=== PATIENT | female | born 1950 | race Caucasian/White ===

== ENCOUNTER → 2017-01-18 | Outpatient (CLI) | payer MEDICARE, MEDICAID ==
[~2017-01-18] MED LIST: Iopamidol 755 MG/ML 500 ML Multipack Bottle IVPUSH STA
--- NOTE | 2017-01-18 17:02 | CT ---
EXAMINATION: CT chest with contrast HISTORY: Breast lump COMPARISON: Mammograms dated 11/09/2016. TECHNIQUE: Axial CT images obtained through the chest following the administration of 70 mL of Isovu e-370 in the right wrist. Coronal and sagittal reconstructions obtained. Breathing artifact is noted . FINDINGS: There is nodular scarring within the left lingula, otherwise the lungs are clear. No pleur al effusion or pneumothorax. The heart is normal in size without a pericardial effusion. The thoraci c aorta is normal caliber. Main pulmonary arteries are patent. There is a tiny hiatal hernia. No med iastinal or hilar lymphadenopathy. The central airways are clear. There is a 9 mm asymmetry within t he right breast approximate 10 to 11:00 position which likely corresponds to the 2 view asymmetry no yamil within the mammogram. Cholelithiasis without evidence of cholecystitis. Remaining images of the upper abdomen appear gross ly unremarkable. There is a small sclerotic focus within the manubrium not well characterized second malik to motion. IMPRESSION: 1. There is a 9 mm asymmetry within the upper outer right breast which likely correlates to the 2 vi ew asymmetry noted on the previous mammogram. This is best noted on images 44 and 45 of series 201. 2. Cholelithiasis without evidence of cholecystitis.
== END ==
LOC: MW.DI 12:51
PROVIDERS: ATTEND Family Medicine
DX: N63 Unspecified lump in breast (principal); R93.8 Abnormal findings on diagnostic imaging of other specified body structures; K80.20 Calculus of gallbladder without cholecystitis without obstruction; N64.89 Other specified disorders of breast
CPT/HCPCS: 71260; Q9967

== ENCOUNTER → 2017-02-19 | Outpatient (CLI) | payer MEDICARE, MEDICAID | LOC: MW.CHGS 08:00 | PROVIDERS: ATTEND Surgery | DX: N63 Unspecified lump in breast (principal) | CPT/HCPCS: G0463 ==

== ENCOUNTER 2017-03-03 06:31 | Day surgery (SDC) | payer MEDICARE, MEDICAID ==
[~2017-03-03 06:31] MED LIST changes: -Iopamidol 755 MG/ML 500 ML Multipack Bottle IVPUSH STA; +Lactated Ringers 1,000 ML IV SCH; +Sodium Chloride 0.9% 10 ML Syringe FLUSH PRN; +Sodium Chloride 0.9% 2.5 ML Syringe FLUSH PRN; +ceFAZolin 2 GM in Premix Bag 1 BAG IV ONE
--- NOTE | 2017-03-03 07:01 | PCM.PREANE ---
Preanesthetic Assessment - Anesthesia/Transfusion/Family Hx Anesthesia History: Prior Anesthesia Without Reaction Transfusion History: No Prior Transfusion(s) - Review of Systems General: No Symptoms Pulmonary: No Symptoms Cardiovascular: No Symptoms Gastrointestinal: No symptoms Neurological: No Symptoms Other: Reports: None - Physical Assessment NPO Status Date: 03/02/17 Height: 1.68 m Weight: 61.689 kg ASA Class: 2 Mental Status: Alert & Oriented x3 Airway Class: Mallampati = 3 Dentition: Reports: Edentulous (edent up) Lungs: Clear to auscultation, Normal respiratory effort Cardiovascular: Regular Rate, Regular Rhythm - Allergies Allergies/Adverse Reactions: Allergies Allergy/AdvReac Type Severity Reaction Status Date / Time No Known Allergies Allergy Verified 07/31/16 20:03 - Blood Blood Available: No - Acknowledgements Anesthesia Type Planned: General Anesthesia Pt an Appropriate Candidate for the Planned Anesthesia: Yes Alternatives and Risks of Anesthesia Discussed w Pt/Guardian: Yes Pt/Guardian Understands and Agrees with Anesthesia Plan: Yes Additional Comments: caregivers report pt needs sedation for iv start as well as for needle loc and injection of contrast for SLNBX. 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 Musculoskeletal History: Reports: Arthritis, Osteoarthritis, Osteoporosis Other Musculoskeletal History: uses wheelchair Neurological History: Reports: Other (See Below) Other Neuro History: , non verbal, profound intellectual disability Psychiatric History: Reports: Developmental Delay Endocrine/Metabolic History: Reports: None Hematologic History: Reports: None Oncologic (Cancer) History: Reports: None - Infectious Disease History Infectious Disease History: Reports: None - Past Surgical History Head Surgeries/Procedures: Reports: None GI Surgical History: Reports: None Female Surgical History: Reports: None Musculoskeletal Surgical History: Reports: ORIF, Shoulder Surgery, Other (See Below) Other Musculoskeletal Surgeries/Procedures:: Left ankle distal fibula -steel plate - SUBSTANCE USE Smoking Status *Q: Never Smoker Second Hand Smoke Exposure: No Days Per Week of Alcohol Use: 0 Recreational Drug Use History: No - HOME MEDS Home Medications: Home Meds Calcium Carbonate/Vitamin D3 [Oyster Shell Calcium] 1 tab PO BID 04/07/14 [ History] Imipramine HCl [Imipramine] 50 mg PO ACBREAKFAST 04/07/14 [History] Multivitamin [Daily Vitamin] 1 each PO DAILY 04/07/14 [History] Omeprazole 20 mg PO DAILY 04/07/14 [History] risperiDONE [Risperdal] 1 mg PO BEDTIME 04/07/14 [History] Docusate Sodium 200 mg PO BEDTIME 03/02/17 [History] Ferrous Sulfate 325 mg PO DAILY 03/02/17 [History] Imipramine HCl 75 mg PO BEDTIME 03/02/17 [History] Polyethylene Glycol 3350 1 dose PO ASDIRECTED 03/02/17 [History] Starch [Thick-It] 1 dose PO ASDIRECTED PRN 03/02/17 [History] risperiDONE 1.5 tab PO ACBREAKFAST 03/02/17 [History] - CURRENT (IN HOUSE) MEDS Current Meds: Current Medications Lactated Ringer's (Ringers, Lactated) 1,000 mls @ 125 mls/hr IV ASDIRECTED ANA ROSA Last Admin: 03/03/17 06:29 Dose: 125 mls/hr Sodium Chloride (Saline Flush) 10 ml FLUSH ASDIRECTED PRN PRN Reason: Keep Vein Open Sodium Chloride (Saline Flush) 2.5 ml FLUSH ASDIRECTED PRN PRN Reason: Keep Vein Open Discontinued Medications Cefazolin Sodium/Dextrose 2 gm (/ Premix) 50 mls @ 100 mls/hr IV ONETIME ONE Stop: 03/02/17 14:34
[2017-03-03] MEDS ORDERED: Propofol 200 MG/20 ML SDV ONE ×2 (07:06→07:07)
[2017-03-03] MEDS ORDERED: Midazolam 1 MG/ML 2 ML SDV ONE (07:06)
[2017-03-03] MEDS ORDERED: Lidocaine 2% 5 ML SDV ONE (07:06)
[2017-03-03] MEDS ORDERED: fentaNYL 250 MCG/5 ML SDV ONE (07:06)
[2017-03-03] MEDS ORDERED: Bupivacaine 0.5% 10 ML SDV ONE (07:09)
[2017-03-03] MEDS ORDERED: Lidocaine 1% 50 ML MDV ONE (07:09)
[2017-03-03] MEDS ORDERED: Midazolam Oral Soln 10 MG/5 ML UD Cup PO ONE (07:56)
[2017-03-03] MEDS ORDERED: Isosulfan Blue 5 ML SDV SUBCUT ONE (09:09)
[2017-03-03] MEDS ORDERED: Octyl 2-Cyanoacrylate 1 Tube ONE (10:18)
[2017-03-03] MEDS ORDERED: ePHEDrine 50 MG/ML SDV ONE ×2 (10:27→12:40)
[2017-03-03] MEDS ORDERED: fentaNYL 100 MCG/2 ML SDV ONE (11:11)
--- NOTE | 2017-03-03 13:04 | PCM.OPNOTE ---
- General Post-Op/Procedure Note Date of Surgery/Procedure: 03/03/17 Operative Procedure(s): Lumpectomy and Curran lymph node biopsy Findings: 1 lymph node in right axilla 1066 radioactivity and blue, mass and wire sent. cranial and caudal margin re-excision Pre Op Diagnosis: right breast mass Post-Op Diagnosis: same Anesthesia Technique: General ET tube Primary Surgeon: Deysi Urbano Pathology: Right axillary sentinel lymph node, right breast mass, right cranial margin, right caudal margin Condition: Good
--- NOTE | 2017-03-03 13:11 | NM ---
EXAMINATION: Lymphoscintigraphy HISTORY: Lump COMPARISON: CT dated 01/18/2017 TECHNIQUE: The area was sterilely prepped. A total of 8 intradermal injections were placed in a yusef areolar distribution of the right breast. A total of 0.5 mCi of technetium 99 M labeled sulfur collo id was injected. Planar images were obtained demonstrating the injection site and 2 small foci of ac tivity developing in the axillary region. IMPRESSION: Successful right breast lymphoscintigraphy.
[2017-03-03] MEDS ORDERED: fentaNYL 100 MCG/2 ML SDV IVPUSH PRN (13:23)
--- NOTE | 2017-03-03 14:08 | CT ---
EXAMINATION: CT guided right breast wire localization HISTORY: Breast mass COMPARISON: CT dated 01/18/2017 and mammogram dated 11/09/2016 TECHNIQUE: Consent was obtained prior to the patient arriving to the radiology floor. The patient wa s intubated and placed on the CT table. Planer Off Bearer images were obtained. An adequate location was identif ied. The area was sterilely prepped. 1% lidocaine was administered. Using CT guidance a wire localiz ation needle was advanced to the region of concern. The needle was withdrawn, and the wire location was confirmed. IMPRESSION: Successful CT-guided right breast wire localization.
--- NOTE | 2017-03-03 14:44 | PCM.POSTAN ---
POST ANESTHESIA ASSESSMENT - MENTAL STATUS Mental Status: alert, oriented, other Free Text/Narrative:: Awake. Normal behavior. No evidence of discomfort. Still waking up. To day surgery on Supplemental Oxygen per nasal prongs to be weaned off prior to discharge back to [facility]. - VITAL SIGNS Pulse Rate: 83 SaO2: 95 Resp Rate: 12 Blood Pressure: 130/73 - RESPIRATORY Respiratory Status: respiratory rate WNL, airway patent, O2 saturation stable, supplemental oxygen - CARDIOVASCULAR CV Status: pulse rate WNL, blood pressure stable - GASTROINTESTINAL GI Status: no symptoms - PAIN Pain Score: 0 (non verbal pain score) - POST OP HYDRATION Hydration Status: adequate & stable
--- NOTE | 2017-03-03 16:04 | PCM48HPAN ---
Post Anesthesia Note - EVALUATION WITHIN 48HRS OF ANESTHETIC Vital Signs in Normal Range: Yes Patient Participated in Evaluation: Yes Respiratory Function Stable: Yes Airway Patent: Yes Cardiovascular Function Stable: Yes Hydration Status Stable: Yes Pain Control Satisfactory: Yes Nausea and Vomiting Control Satisfactory: Yes Mental Status Recovered: Yes
--- NOTE | 2017-03-03 16:17 | MY ---
EXAMINATION: Specimen mammogram HISTORY: Lump COMPARISON: Mammograms dated 11/09/2016 TECHNIQUE: Single view FINDINGS/IMPRESSION: The provided specimen mammogram demonstrates the hook and probable mass of conc lety.
[2017-03-03 16:25] VITALS: BP 130/68
--- NOTE | 2017-03-04 00:47 | OR ---
SURGEON: CARLOS BA MD DATE OF PROCEDURE: 03/03/2017 PREOPERATIVE DIAGNOSIS: Right breast mass. POSTOPERATIVE DIAGNOSIS: Right breast mass. PROCEDURE PERFORMED: Right breast sentinel lymph node biopsy and wire localized lumpectomy. ANESTHESIA: General endotracheal anesthesia. FLUIDS: See Anesthesia record. URINE OUTPUT: 500 mL. ESTIMATED BLOOD LOSS: 10 mL. FINDINGS: One sentinel lymph node within the right axilla that appeared blue and showed radioactivity. Wire-localized mass deep along the chest wall in the right upper outer quadrant. COMPLICATIONS: None. INDICATIONS: The patient is a 66-year-old female, who resides at the [facility]. She recently underwent a first time screening mammography that showed a spiculated mass in the right upper outer quadrant. This was not visualized on ultrasound, so the patient underwent a CT of the chest. The CT of the chest showed the mass in the right upper outer quadrant. Given the patient's mental handicaps, she was unable to cooperate with preoperative needle localization or any needle biopsies of the area. After a long discussion with her primary care physician and the Anesthesia team, the decision was made to intubate the patient in the operating room and take her down to Radiology to perform a CT-guided needle wire localization of the mass. Given the concern that this is highly suspicious for cancer, the decision was made to perform a sentinel lymph node biopsy at the same time in case the mass comes back as an invasive cancer or carcinoma in situ. I had lengthy conversations with the patient's power of state's attorney regarding the procedure, the expected perioperative course, wound cares afterwards, as well as the risks including bleeding, infection, or damage to surrounding structures. The patient's power of state's attorney verbalized understanding and wishes to proceed. PROCEDURE IN DETAIL: The patient was brought into the operating room and intubated prior to my procedure. The patient was then taken down to Radiology for a CT-guided wire localization of the right breast mass and lymphoscintigraphy. Images were obtained in Nuclear Medicine afterwards to localize the radioactive sentinel lymph node, which appeared to be in the right upper outer quadrant along the axilla. The patient was then brought into the operating room from Radiology and placed on the OR table in supine position. The right arm was placed at a 90- degree angle with the hand angled up. Prior to prepping and draping, I used the Zite counter to locate the area of greatest radioactivity within the right axilla. This spot was marked with a marking pen. The patient's right chest, arm, and axilla were prepped and draped in the usual standard fashion. I started first with the sentinel lymph node biopsy. We were approximately 1 hour after placement of the Tc 99 sulfur colloid in Radiology. 3 to 4 mL of isosulfan blue dye was injected along the right periareolar margin laterally. This was massaged gently for 5 minutes. A handheld gamma probe was used to identify the location of the hottest spot in the axilla. Prior to the incision, the counts were 400 to 500. An incision was made and a hot blue node was identified. The probe was placed in contact with the node and a count of 1066 was recorded. The node was excised in its entirety. Ex vivo, the node measured 1066 counts again when it was placed on the probe. The bed of the node measured 18 counts after this was removed. I sent the sentinel lymph node to pathology labeled as right axillary sentinel lymph node. This was sent for frozen, which confirmed a solitary lymph node with no evidence of metastases. I inspected my incision and the surrounding tissue for any further radioactivity and none was noted. The wound was irrigated copiously with normal saline and closed with interrupted 3-0 Vicryls in the subcutaneous fat to close the space and a running 4-0 Monocryl suture over the incision to close the skin. I then turned my attention to the mass on the right breast. A 6-cm incision was made horizontally along the 9 o'clock position encompassing the wire. The wire was located in the middle of the incision. I then dissected down using cautery to a level 2 to 3 cm from the skin. I then made a wide 2 x 2 box incision around the wire to try and encompass the mass. I was unable to palpate any mass as I was doing this and at one point, I came across thickened tissue that appeared to be consistent with the mass. I widened my margins to make sure that they were clear. Once the mass was out, it was oriented using silk sutures and sent to pathology for frozen. My cranial and caudal margins were close, so I took another 1 cm of tissue in the cranial and caudal areas. These were oriented and sent to pathology labeled as cranial and caudal margins. I then placed surgical drew around the site of my biopsy bed for possible radiation later or re- excision. The wound was irrigated copiously with normal saline and hemostasis was achieved with cautery. Once I had confirmation of good margins, I closed the wound with interrupted 3-0 Vicryls within the subcutaneous fat to try and close up the space adequately. I then closed the skin overlying the incision with interrupted 3-0 Vicryls within the subcutaneous fat and a running 4-0 Monocryl suture within the skin. Before completing the procedure, I injected Marcaine widely around both my axillary lymph node surgical site and my lumpectomy site to provide good postoperative anesthetic. I then applied Dermabond to the wounds and sterile dressings were then applied afterwards. The patient was straight cathed at the end of the procedure and 500 mL of clear urine was noted. All counts were complete and correct at the end of the case. The patient was taken to the postoperative care unit in stable condition. LEDA MURILLO /[id number]
== END 2017-03-03 16:20 | disposition home or self-care (01) ==
LOC: MW.SDS 06:31
PROVIDERS: ATTEND Surgery
PROC: 0HBT0ZZ Excision of Right Breast, Open Approach (ICD-10-PCS; principal; 2017-03-03)
PROC: 07B50ZX Excision of Right Axillary Lymphatic, Open Approach, Diagnostic (ICD-10-PCS; 2017-03-03)
DX: D05.11 Intraductal carcinoma in situ of right breast (principal); F81.9 Developmental disorder of scholastic skills, unspecified; F80.89 Other developmental disorders of speech and language; M19.90 Unspecified osteoarthritis, unspecified site; K21.9 Gastro-esophageal reflux disease without esophagitis; Z79.899 Other long term (current) drug therapy; K59.09 Other constipation
CPT/HCPCS: 19125; 38525; 76098; 77012; 78195; 88305; 88307; 88331; A9270; A9541; J2250; J3010; J7120; Q9968; 00400; J2704

== ENCOUNTER 2018-03-30 17:49 | Emergency (ER) | payer MEDICARE, MEDICAID ==
--- NOTE | 2018-03-30 17:56 | EDM.PDOC ---
ED HPI GENERAL MEDICAL PROBLEM - General Stated Complaint: CHOKING AND UNRESPONSIVE Time Seen by Provider: 03/30/18 17:52 Source of Information: Reports: Patient - History of Present Illness INITIAL COMMENTS - FREE TEXT/NARRATIVE: HISTORY AND PHYSICAL: History of present illness: [ Patient presents via EMS Unresponsive female, she was at some type of social gathering was called for unresponsiveness on arrival they cleared her airway manually, they began CPR shortly after with a couple rounds of CPR should begin to maintain her own airway and hemodynamically stable she was pulseless on arrival unknown down time No medications provided via EMS they did make attempts to intubate in the field and were unsuccessful She arrives with a [place] Coma Scale of 3 Anesthesia intubated on arrival, see anesthesia note for detailed information ] Review of systems: As per history of present illness and below otherwise all systems reviewed and negative. Past medical history: As per history of present illness and as reviewed below otherwise noncontributory. Surgical history: As per history of present illness and as reviewed below otherwise noncontributory. Social history: No reported history of drug or alcohol abuse. Family history: As per history of present illness and as reviewed below otherwise noncontributory. Physical exam: HEENT: Atraumatic, normocephalic, pupils reactive 5 mm, negative for conjunctival pallor or scleral icterus, mucous membranes moist, throat clear, neck supple, nontender, trachea midline. Lungs: Clear to auscultation, breath sounds equal bilaterally, chest nontender. Heart: S1S2, regular, negative for clicks, rubs, or JVD. Abdomen: Soft, nondistended, nontender. Negative for masses or hepatosplenomegaly. Negative for costovertebral tenderness. Pelvis: Stable nontender. Genitourinary: Deferred. Rectal: Deferred. Extremities: Atraumatic, negative for cords or calf pain. Neurovascular unremarkable. Neuro:GCS scale 3 Diagnostics: [CBC CMP UA drug screen alcohol EKG Chest 1 view ] Therapeutics: [ none ] Impression: [ altered mental status hemodynamically stable ] Definitive disposition and diagnosis as appropriate pending reevaluation and review of above. - Related Data Allergies Allergy/AdvReac Type Severity Reaction Status Date / Time No Known Allergies Allergy Verified 07/31/16 20:03 Home Meds: Home Meds Calcium Carbonate/Vitamin D3 [Oyster Shell Calcium] 1 tab PO BID 04/07/14 [ History] Imipramine HCl [Imipramine] 50 mg PO ACBREAKFAST 04/07/14 [History] Multivitamin [Daily Vitamin] 1 each PO DAILY 04/07/14 [History] Omeprazole 20 mg PO DAILY 04/07/14 [History] risperiDONE [Risperdal] 1 mg PO BEDTIME 04/07/14 [History] Docusate Sodium 200 mg PO BEDTIME 03/02/17 [History] Ferrous Sulfate 325 mg PO DAILY 03/02/17 [History] Imipramine HCl 75 mg PO BEDTIME 03/02/17 [History] Polyethylene Glycol 3350 1 dose PO ASDIRECTED 03/02/17 [History] Starch [Thick-It] 1 dose PO ASDIRECTED PRN 03/02/17 [History] risperiDONE 1.5 tab PO ACBREAKFAST 03/02/17 [History] Past Medical History HEENT History: Reports: None Cardiovascular History: Reports: None Respiratory History: Reports: None Gastrointestinal History: Reports: Chronic Constipation, GERD Genitourinary History: Reports: Urinary Incontinence Other Genitourinary History: wears depends 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 Musculoskeletal History: Reports: Arthritis, Osteoarthritis, Osteoporosis Other Musculoskeletal History: uses wheelchair Neurological History: Reports: Other (See Below) Other Neuro History: , non verbal, profound intellectual disability Psychiatric History: Reports: Developmental Delay Endocrine/Metabolic History: Reports: None Hematologic History: Reports: None Oncologic (Cancer) History: Reports: None - Infectious Disease History Infectious Disease History: Reports: None - Past Surgical History Head Surgeries/Procedures: Reports: None GI Surgical History: Reports: None Female Surgical History: Reports: None Musculoskeletal Surgical History: Reports: ORIF, Shoulder Surgery, Other (See Below) Other Musculoskeletal Surgeries/Procedures:: Left ankle distal fibula -steel plate Social & Family History - Family History Family Medical History: Noncontributory - Caffeine Use Caffeine Use: Reports: None ED ROS GENERAL - Review of Systems Review Of Systems: See Below ED EXAM, GENERAL - Physical Exam Exam: See Below Course - Orders/Labs/Meds Orders: Active Orders 24 hr Category Date Time Status EKG Documentation Completion [RC] STAT Care 03/30/18 17:51 Active Chest 1V Frontal [CR] Stat Exams 03/30/18 17:51 Ordered ABG [BLOOD GAS ARTERIAL] [BG] Stat Lab 03/30/18 18:02 Ordered ABG [BLOOD GAS ARTERIAL] [BG] Stat Lab 03/30/18 18:03 Ordered CBC WITH AUTO DIFF [HEME] Stat Lab 03/30/18 17:45 Results COMPREHENSIVE METABOLIC PN,CMP [CHEM] Stat Lab 03/30/18 17:45 Received DRUG SCREEN, URINE [URCHEM] Stat Lab 03/30/18 17:52 Ordered ETOH [ETHANOL BLOOD MEDICAL] [CHEM] Stat Lab 03/30/18 17:45 Received INR,PT,PROTHROMBIN TIME [COAG] Stat Lab 03/30/18 17:45 Received TROPONIN I [CHEM] Stat Lab 03/30/18 17:45 Received UA W/MICROSCOPIC [URIN] Stat Lab 03/30/18 17:51 Ordered Levofloxacin/Dextrose 5%-Water [Levaquin in D5W 500 MG/ Med 03/30/18 18:00 Active 100 ML] 500 mg Premix Bag 1 bag IV ONETIME Medication Orders Levofloxacin/Dextrose 500 mg/ (Premix) 100 mls @ 100 mls/hr IV ONETIME ONE Stop: 03/30/18 18:59 Labs: Laboratory Tests 03/30/18 Range/Units 17:45 WBC 13.02 H (4.0-11.0) K/uL RBC 4.62 (4.30-5.90) M/uL Hgb 13.4 (12.0-16.0) g/dL Hct 40.6 (36.0-46.0) % MCV 87.9 (80.0-98.0) fL MCH 29.0 (27.0-32.0) pg MCHC 33.0 (31.0-37.0) g/dL RDW Std Deviation 44.8 (28.0-62.0) fl RDW Coeff of Lorne 14 (11.0-15.0) % Plt Count 244 (150-400) K/uL MPV 10.60 (7.40-12.00) fL Add Manual Diff YES Nucleated RBC % 0.0 /100WBC Nucleated RBCs # 0 K/uL Meds: Medications Generic Name Dose Route Start Last Admin Trade Name Freq PRN Reason Stop Dose Admin Levofloxacin/Dextrose 500 mg/ 100 mls @ 100 mls/hr 03/30/18 18:00 Premix IV 03/30/18 18:59 ONETIME ONE Discontinued Medications Generic Name Dose Route Start Last Admin Trade Name Concepcion PRN Reason Stop Dose Admin Propofol Confirm 03/30/18 17:52 Diprivan 100 Ml Administered 03/30/18 17:53 Dose 100 mls @ as directed .ROUTE .STK-MED ONE Departure - Departure Time of Disposition: 18:05 Disposition: Home, Self-Care 01 Condition: Poor Clinical Impression: Altered mental status, unspecified - Discharge Information - My Orders Last 24 Hours: My Active Orders 03/30/18 17:45 CBC WITH AUTO DIFF [HEME] Stat COMPREHENSIVE METABOLIC PN,CMP [CHEM] Stat ETOH [ETHANOL BLOOD MEDICAL] [CHEM] Stat INR,PT,PROTHROMBIN TIME [COAG] Stat TROPONIN I [CHEM] Stat 03/30/18 17:51 EKG Documentation Completion [RC] STAT Chest 1V Frontal [CR] Stat UA W/MICROSCOPIC [URIN] Stat 03/30/18 17:52 DRUG SCREEN, URINE [URCHEM] Stat 03/30/18 18:00 Levofloxacin/Dextrose 5%-Water [Levaquin in D5W 500 MG/100 ML] 500 mg Premix Bag 1 bag IV ONETIME 03/30/18 18:03 ABG [BLOOD GAS ARTERIAL] [BG] Stat - Assessment/Plan Last 24 Hours: My Active Orders 03/30/18 17:45 CBC WITH AUTO DIFF [HEME] Stat COMPREHENSIVE METABOLIC PN,CMP [CHEM] Stat ETOH [ETHANOL BLOOD MEDICAL] [CHEM] Stat INR,PT,PROTHROMBIN TIME [COAG] Stat TROPONIN I [CHEM] Stat 03/30/18 17:51 EKG Documentation Completion [RC] STAT Chest 1V Frontal [CR] Stat UA W/MICROSCOPIC [URIN] Stat 03/30/18 17:52 DRUG SCREEN, URINE [URCHEM] Stat 03/30/18 18:00 Levofloxacin/Dextrose 5%-Water [Levaquin in D5W 500 MG/100 ML] 500 mg Premix Bag 1 bag IV ONETIME 03/30/18 18:03 ABG [BLOOD GAS ARTERIAL] [BG] Stat
[2018-03-30] MEDS ORDERED: Etomidate 2 MG/ML 20 ML SDV IVPUSH ONE (18:00)
[2018-03-30] MEDS ORDERED: Levofloxacin/Dextrose 5%-Water 500 MG in Premix Bag 1 BAG IV ONE (18:00)
[2018-03-30] MEDS ORDERED: Rocuronium 50 MG/5 ML Vial ONE (18:00)
[2018-03-30] MEDS ORDERED: Succinylcholine 200 MG/10 ML MDV ONE (18:00)
--- NOTE | 2018-03-30 18:15 | PCM.SN ---
- Free Text/Narrative Note: Called to the ER for Code Blue patient. On arrival the patient is in Sinus Tachycardia, SpO2 93% with assisted respirations via BVM. DL with Alba 2 yields Grade I view, 7.0 ETT placed, + BBS, + EtCO2. VSS throughout intubation without any medications. After 5 minutes of intubation, the patient began coughing and was started on a Propofol drip at 50mcg/kg/min and was given Rocuronium 50mg IVP as well for sedation and relaxation. VSS.
[2018-03-30 18:32] LABS: CHLORIDE,CL 104 mmol/L (98-107); SODIUM,NA 143 mmol/L (136-145)
--- NOTE | 2018-03-31 08:20 | CR ---
EXAM DATE: 03/30/18 PATIENT'S AGE: 67 Patient: ANITA AGEE Facility: [place], [place] Site . Site : 1950 Study: XRay Chest [id number] 6:11:33 PM Ordering Physician: Doctor Ventura Final Report: INDICATION: Post intubation TECHNIQUE: Chest 1 view. 5:59 p.m. COMPARISON: None. FINDINGS: Cardiovascular and mediastinum: Heart size and vasculature are normal in caliber and appearance. Mediastinum is within normal limits. Lungs and pleural space: ET tube in place the tip 3.0 centimeters from the belinda. Lungs are clear. No sign of infiltrate or mass. No sign of pleural effusion. No pneumothorax. Bones and soft tissues: No significant findings. IMPRESSION: No acute pulmonary or cardiac abnormalities. ET tube in place with the tip 3.0 centimeters from the belinda Dictated by Clark Conti MD @ 03/30/2018 6:21:41 PM Dictated by: Clark Conti MD @ 03/30/2018 18:21:46 (Electronic Signature) Report Signed by Proxy. [facility] HOSPITALYaima
[2018-03-31 15:12] VITALS: BP 147/81
== END 2018-03-30 19:01 ==
LOC: MW.ED 17:49
DX: R41.82 Altered mental status, unspecified (principal); Z79.899 Other long term (current) drug therapy
CPT/HCPCS: 36415; 36600; 71045; 80053; 80305; 81001; 82803; 84484; 85025; 85610; 93005; 96360; 99291; 99292; G0480; J0330; 31500; 99283